=== PATIENT | male | born 1985 | race Caucasian/White ===

== ENCOUNTER 2017-01-14 11:20 | Emergency (ER) | payer SELFPAY ==
[~2017-01-14] VITALS: Ht 182.9 cm; Wt 76.2 kg
[2017-01-14 11:55] VITALS: BP 116/58
--- NOTE | 2017-01-14 12:33 | RAD ---
Three-view right hand radiographs 01/14/2017 Clinical history: Patient hit a wall 2 days ago with right hand pain. PA, lateral and oblique digital radiographs of the right hand were obtained. No fracture or dislocation of the right hand is seen. Moderate to severe degenerative changes are seen involving the fifth carpometacarpal joint. Impression: No fracture or dislocation of the right hand is seen.
--- NOTE | 2017-01-14 12:55 | PHYS DOC ---
Past Medical History Past Medical History: No Pertinent History Past Surgical History: Other Additional Past Surgical Histo: JAW SX Alcohol Use: Occasionally Drug Use: Marijuana Adult General Chief Complaint Chief Complaint: HAND PROBLEM HPI HPI Patient is a 31 year old male presents to the emergency department stating that he is having right hand pain over the fifth metacarpal area. He states that he had a wall a few days ago. He denies any numbness or tingling to the area. Patient does have full range of motion of the hand fingers. His been taken anything for pain or discomfort. Peripheral pulses 2+ cap refill brisk less than 2 seconds. Patient is right-hand dominant. Review of Systems Review of Systems Constitutional: Denies fever or chills [] Eyes: Denies change in visual acuity, redness, or eye pain [] HENT: Denies nasal congestion or sore throat [] Respiratory: Denies cough or shortness of breath [] Cardiovascular: No additional information not addressed in HPI [] GI: Denies abdominal pain, nausea, vomiting, bloody stools or diarrhea [] : Denies dysuria or hematuria [] Musculoskeletal: Denies back pain. Right hand pain Integument: Denies rash or skin lesions [] Neurologic: Denies headache, focal weakness or sensory changes [] Endocrine: Denies polyuria or polydipsia [] Physical Exam Physical Exam Constitutional: Well developed, well nourished, no acute distress, non-toxic appearance. [] HENT: Normocephalic, atraumatic, bilateral external ears normal, oropharynx moist, no oral exudates, nose normal. [] Eyes: PERRLA, EOMI, conjunctiva normal, no discharge. [] Neck: Normal range of motion, no tenderness, supple, no stridor. [] Cardiovascular:Heart rate regular rhythm Lungs & Thorax: No respiratory distress noted Skin: Warm, dry, no erythema, no rash. [] Back: No tenderness Extremities: Right hand fifth metacarpal tenderness, no cyanosis, no clubbing, ROM intact, no edema. Patient does have an abnormality over the distal part of the metacarpal area. He does have a enlarged area approximately size of a half a dollar that is very hard with no manipulation ability noted. Neurologic: Alert and oriented X 3, normal motor function, normal sensory function, no focal deficits noted. [] Psychologic: Affect normal, judgement normal, mood normal. [] Current Patient Data Vital Signs Vital Signs Date Time Temp Pulse Resp B/P (MAP) Pulse Ox O2 Delivery O2 Flow Rate FiO2 01/14/17 11:55 97.6 76 16 95 Room Air 97.6 EKG EKG [] Radiology/Procedures Radiology/Procedures [facility] [address] [place] [address] IMAGING REPORT Signed PATIENT: ROLO HOLLAND ACCOUNT: [id number] : 1985 LOCATION: ER AGE: 31 SEX: M EXAM STATUS: PRE ER ORD. PHYSICIAN: EULALIO MERIDA APRN REASON: punched a wall PROCEDURE: HAND RIGHT 3V Three-view right hand radiographs 01/14/2017 Clinical history: Patient hit a wall 2 days ago with right hand pain. PA, lateral and oblique digital radiographs of the right hand were obtained. No fracture or dislocation of the right hand is seen. Moderate to severe degenerative changes are seen involving the fifth carpometacarpal joint. Impression: No fracture or dislocation of the right hand is seen. DICTATED and SIGNED BY: FINESSE RICH MD DATE: 01/14/17 1229 CC: EULALIO MERIDA APRN ~ Course & Med Decision Making Course & Med Decision Making Pertinent Labs and Imaging studies reviewed. (See chart for details) X-rays were negative for any bony abnormalities. Patient will be discharged home with recommendations to follow-up with orthopedic within the week. He'll be placed on a gutter splint. Recommendations for Tylenol and ibuprofen for pain and discomfort. Patient was recommended for ice packs on 20 minutes off 20 minutes several times a day elevation as much as possible. Patient be provided with orthopedic name and number to follow up with. Signs and symptoms to return back to emergency department as been provided. All questions and concerns were answered at patient's bedside. [] Dragon Disclaimer Dragon Disclaimer This electronic medical record was generated, in whole or in part, using a voice recognition dictation system. Departure Departure Impression: Primary Impression: Right hand pain Disposition: HOME, SELF-CARE Condition: STABLE Referrals: NO PCP (PCP) NELSON,DRU J MD Patient Instructions: Hand Contusion, [id number], Splint Care, [id number] Additional Instructions: Activity as tolerated. Tylenol or ibuprofen for pain and discomfort. Ice packs on 20 minutes off 20 minutes several times a day. Elevation as much as possible. Keep the splint in place until you follow-up with orthopedic. Follow-up with orthopedic in the next week. Return back to the emergency department for signs symptoms of become worse. Splinting Splinting : Location: right hand Hand-Made Type: orthoglass Splint: ulnar Pre-Proc Neuro Vasc Exam: normal Post-Proc Neuro Vasc Exam: normal EULALIO MERIDA APRN Jan 14, 2017 12:55
== END 2017-01-14 13:06 | disposition home or self-care (01) ==
LOC: ER 11:20
DX: M79.641 Pain in right hand (principal)
CPT/HCPCS: 29125; 73130; 99284-25